=== PATIENT | male | born 1995 | race African-American/Black ===

== ENCOUNTER 2025-03-07 08:15 | Emergency (ER) | payer SELFPAY ==
[2025-03-07 08:26] VITALS: BP 105/81
--- NOTE | 2025-03-07 09:35 | ED.GENMED ---
History of Present Illness
<Luigi Berrios MD - Last Filed: 03/07/25 13:08>
General
Chief Complaint: Withdrawal Symptoms
Time Seen by Provider: 03/07/25 08:46
<LUH Crawford - Last Filed: 03/07/25 14:39>
General
Source: patient
Exam Limitations: none
History of Present Illness
History of Present Illness:
This is a 29 yr old M with prior ecstasy use, current kratom use and unclear PMH due to poor provider follow up, who presents with withdrawal symptoms x 1 day. He reports last using Ecstasy in august and Kratom yesterday morning. He reports
insomnia secondary to body discomfort, chills, CP, SOB, nausea, vomiting and constipation. He is interested in rehab. He denies fevers, vision changes, abdominal pain, hematuria, hematemesis hematochezia, confusion.
Review of Systems
<LUH Crawford - Last Filed: 03/07/25 14:39>
Review of Systems
Constitutional: Reports sleep disturbance, night sweats and chills
EENT: Reports no symptoms
Respiratory: Reports other (dyspnea)
Cardiac: Reports chest pain
ABD/GI: Reports nausea, vomiting and constipated; Denies abdominal pain, diarrhea or bloody stools
: Reports no symptoms
Skin: Reports no symptoms
Neurological: Reports dizzy and headache
Hematologic/Lymphatic: Reports no symptoms
Psychiatric: Reports anxiety
Phy Exam
<LUH Crawford - Last Filed: 03/07/25 14:39>
General Physical Exam
General Presentation: no apparent distress and other (tearful, upset)
General age: appears stated age
General Skin: warm
General Habitus: normal
General Mental: anxious and tearful
General Hydration: dry mucous membranes
Eye Exam
Pupil Exam: Bilateral: dilated and other (non reactive)
Eyelid Exam: edematous: Bilateral
Cardiovascular Exam
Cardiovascular Exam: regular rate/rhythm (occasional extrasystoles)
Pulmonary Exam
Pulmonary Exam: lungs clear, no respiratory distress, no rales, no crackles, no rhonchi and no cough
Gastrointestinal Exam
Gastrointestinal Exam: normal bowel sounds, non tender, soft, non distended and hepatomegaly
Palpation: generalized: No tenderness
Course
<Luigi Berrios MD - Last Filed: 03/07/25 13:08>
Orders/Labs/Results
Orders:
Orders
03/07/25 09:26
Electrocardiogram (*1) Urgent
Reason for Study: QTc Monitoring
EKG- Treatment ONCE
0.9% Sodium Chloride 1000 ml [Nss] 1,000 ml IV BOLUS
03/07/25 09:27
Lorazepam [Ativan] 1 mg IV NOW STA
03/07/25 09:56
Acetaminophen Urgent
Alcohol Urgent
Complete Blood Count/No Diff Urgent
Comprehensive Metabolic Panel Urgent
Magnesium Urgent
Salicylate Urgent
03/07/25 12:07
Fentanyl, Urine Urgent
Urine Drug Abuse Screen Urgent
Date Specimen was Collected: 03/07/25
Time Specimen was Collected: 12:06
Abnormal Lab Results
03/07/25 03/07/25
09:56 12:07
WBC 12.0 H 10^3/uL
(4.8-10.8)
Glucose 119 H mg/dl
(70-99)
Salicylates < 1.0 L mg/dl
(2.0-20.0)
Acetaminophen < 10 L ug/ml
(10-30)
U Benzodiazepines Scrn Positive H
(Negative)
U Marijuana (THC) Screen Positive H
(Negative)
03/07/25 09:56
03/07/25 09:56
Vital Signs
Initial and Last Documented VS:
Initial Vital Signs
Temp Pulse Resp BP Pulse Ox
98 F 86 16 105/81 100
03/07/25 08:26 03/07/25 08:26 03/07/25 08:26 03/07/25 08:26 03/07/25 08:26
Last Documented Vital Signs
Temp Pulse Resp BP Pulse Ox
98 F 76 16 122/81 99
03/07/25 08:26 03/07/25 12:30 03/07/25 08:26 03/07/25 12:09 03/07/25 12:30
<LUH Crawford - Last Filed: 03/07/25 14:39>
Orders/Labs/Results
Orders:
Orders
03/07/25 09:26
Electrocardiogram (*1) Urgent
Reason for Study: QTc Monitoring
EKG- Treatment ONCE
0.9% Sodium Chloride 1000 ml [Nss] 1,000 ml IV BOLUS
03/07/25 09:27
Lorazepam [Ativan] 1 mg IV NOW STA
03/07/25 09:56
Acetaminophen Urgent
Alcohol Urgent
Complete Blood Count/No Diff Urgent
Comprehensive Metabolic Panel Urgent
Magnesium Urgent
Salicylate Urgent
03/07/25 12:07
Fentanyl, Urine Urgent
Urine Drug Abuse Screen Urgent
Date Specimen was Collected: 03/07/25
Time Specimen was Collected: 12:06
Abnormal Lab Results
03/07/25 03/07/25
09:56 12:07
WBC 12.0 H 10^3/uL
(4.8-10.8)
Glucose 119 H mg/dl
(70-99)
Salicylates < 1.0 L mg/dl
(2.0-20.0)
Acetaminophen < 10 L ug/ml
(10-30)
U Benzodiazepines Scrn Positive H
(Negative)
U Marijuana (THC) Screen Positive H
(Negative)
03/07/25 09:56
03/07/25 09:56
Vital Signs
Initial and Last Documented VS:
Initial Vital Signs
Temp Pulse Resp BP Pulse Ox
98 F 86 16 105/81 100
03/07/25 08:26 03/07/25 08:26 03/07/25 08:26 03/07/25 08:26 03/07/25 08:26
Last Documented Vital Signs
Temp Pulse Resp BP Pulse Ox
98 F 76 16 122/81 99
03/07/25 08:26 03/07/25 12:30 03/07/25 08:26 03/07/25 12:09 03/07/25 12:30
<Luigi Berrios MD - Last Filed: 03/07/25 13:08>
*EKG
Interpreted by ED Provider?: Yes
EKG Intrepretation Date: 03/07/25
Heart Rate: 71
Rate: normal
Rhythm: sinus and sinus arrhythmia
[place]: normal axis
Interval: normal interval
<LUH Crawford - Last Filed: 03/07/25 14:39>
*Critical Care Note
Total Time (30-74mins, 75-104mins- exclusive of procedures): Not Applicable
ED Attending Note
<Luigi Berrios MD - Last Filed: 03/07/25 13:08>
ED Attending Note
Patient seen and examined by attending physician: Yes
ED Attending Note:
Patient presents to ED for medical evaluation, as he is seeking assistance for rehab secondary to substance abuse. Patient has utilized ecstasy in the past, and currently reports using kratom, with last use yesterday. Patient reports feeling
anxious, short of breath, and multiple vomiting episodes. Patient has experienced similar symptoms in the past, but never this severe. Denies recent illness. Denies fever or chills. Denies coughing. Denies abdominal pain. Denies diarrhea.
Patient admits to poor oral intake with decreased appetite. Denies suicidal or homicidal ideation.
Physical Exam
General: mild distress, not acutely ill. afebrile. anxious appearing
Head: nc/at. eomi
Neck: supple. no meningeal signs.
Heart: s1/s2 regular rate and rhythm
Lungs: no acute respiratory distress. clear bilaterally
Abdomen: normal bowel sounds. not tender.
Neuro: alert and oriented x 3. no focal neurological deficits.
Skin: no rash
Psychiatric: well kept. interactive and cooperative. tearful
Extremities: no edema. no calf tenderness
History and exam concerning for ongoing substance abuse with associated side effects/withdrawal symptoms. As patient has not had any medical care for extended period time, patient will be screened medically with blood work and EKG. Patient will be
provided with anxiolytic, i.e. Ativan, along with IV fluids. [facility].
Blood work reviewed and discussed with patient. Patient remains afebrile, hemodynamically stable, and reports improving symptoms after treatment. Patient is medically clear at this time, and will be transferred to [facility] for further
evaluation and treatment.
<LUH Crawford - Last Filed: 03/07/25 14:39>
-
Portions of this chart may have been created with voice recognition software.� Occasional wrong word or��sound alike� substitutions may have occurred due to the inherent limitations of voice recognition software.
Discharge Plan
Departure
Patient Disposition: Acute Rehab Facility
Date of Disposition: 03/07/25
Time of Disposition: 11:55
Discharge Problem:
Substance abuse
Instructions: Drug Misuse and Addiction (DC)
Referrals:
NONE,* [Family Provider, Internal Medicine]
Activity Restrictions/Additional Instructions:
As discussed, please follow-up at [facility] upon discharge for further evaluation and treatment.
Interventions
Interventions:
*Risk Screen - Suicide Last Done: 03/07/25 08:28
*General Assessment Last Done: 03/07/25 08:28
*Neglect/Abuse Screening Last Done: 03/07/25 08:28
*ED- Fall Risk Assessment Last Done: 03/07/25 09:59
*ED COVID-19 Vaccine History Last Done: 03/07/25 09:59
*Nursing Disposition Last Done: 03/07/25 13:21
ED- Neurological Assessment Last Done: 03/07/25 09:59
ED-Psychological Assessment Last Done: 03/07/25 10:00
Discharge Date and Time
Discharge Date/Time: 03/07/25 13:23
Print Language: SERBIAN
[2025-03-07 09:55] VITALS: BMI 23.6
[2025-03-07] MEDS: ATIVAN 1 MG IV (09:57)
[2025-03-07] MEDS: NSS 1000 IV (09:58)
[2025-03-07 10:00] VITALS: BP 122/75
[2025-03-07 10:04] LABS: Hematocrit 42.4 % (39.0-52.0); Hemoglobin 14.6 g/dL (13.0-18.0); Mean Corp Hgb Conc. 34.4 g/dL (33.0-37.0); Mean Corpuscular Hgb 30.4 pg (27.0-31.0); Mean Corpuscular Volume 88.3 fL (80.0-94.0); Mean Platelet Volume 10.3 fL (7.4-10.4); Platelet Count 218 10^3/uL (130-400); Red Cell Dist. Width 12.7 % (11.5-14.5)
[2025-03-07 10:50] LABS: ALT (SGPT) 33 U/L (0-50); AST (SGOT) 35 U/L (17-59); Acetaminophen < 10 ug/ml (10-30); Albumin 4.7 g/dl (3.5-5.0); Alkaline Phosphatase 66 U/L (38-126); Blood Urea Nitrogen 12 mg/dl (9-20); Calcium 9.8 mg/dl (8.4-10.2); Carbon Dioxide 26 mmol/L (22-30); Chloride 107 mmol/L (98-107); Estimated Creatinine Clearance > 125 ml/min; Glucose 119 mg/dl (70-99); Magnesium 1.9 mg/dl (1.6-2.3); Potassium 4.3 mmol/L (3.5-5.1); Salicylate < 1.0 mg/dl (2.0-20.0); Sodium 137 mmol/L (135-145); Total Bilirubin 0.5 mg/dl (0.2-1.3); Total Protein 7.6 g/dl (6.3-8.2); eGFR > 60.00
[2025-03-07 10:53] LABS: Alcohol None Detected
[2025-03-07 12:04] VITALS: BP 122/81
[2025-03-07 12:09] VITALS: BP 122/81
[2025-03-07 12:37] LABS: Amphetamines Negative (Negative); Barbiturates Negative (Negative)
[2025-03-07 12:38] LABS: Benzodiazepines Positive (Negative); Buprenorphine Negative (Negative); Cocaine Negative (Negative)
[2025-03-07 12:39] LABS: Methamphetamines Negative (Negative)
[2025-03-07 12:40] LABS: Methadone Negative (Negative); Opiates Negative (Negative)
[2025-03-07 12:41] LABS: Phencyclidine Negative (Negative)
[2025-03-07 12:42] LABS: Marijuana Positive (Negative); Tricyclic Antidepressants Negative (Negative)
[2025-03-07 13:03] LABS: Fentanyl, Urine Negative (Negative)
== END 2025-03-07 13:23 ==
LOC: EMR 08:15
PROVIDERS: EMERGENCY PHYSICIAN Emergency Medicine
DX: R06.02 Shortness of breath (principal); R11.2 Nausea with vomiting, unspecified; R42 Dizziness and giddiness; K59.00 Constipation, unspecified; F19.10 Other psychoactive substance abuse, uncomplicated; R51.9 Headache, unspecified; F41.9 Anxiety disorder, unspecified; R07.9 Chest pain, unspecified; R61 Generalized hyperhidrosis; G47.9 Sleep disorder, unspecified
CPT/HCPCS: 99285; 96374; 80053; 80143; 80179; 80306; 80307; 82077; 83735; 85027; 93005